=== PATIENT | male | born 1960 | race Caucasian/White ===

== ENCOUNTER 2018-12-12 15:41 | Emergency (ER) | payer OTHER ==
[~2018-12-12] VITALS: Ht 182.9 cm; Wt 90.7 kg
== END 2018-12-12 16:47 | disposition home or self-care (01) ==
LOC: ER 15:41
DX: S01.01XA Laceration without foreign body of scalp, initial encounter (principal); W22.8XXA Striking against or struck by other objects, initial encounter
CPT/HCPCS: 12002; 90471; 90714; 99282-25